=== PATIENT | female | born 1945 | race African-American/Black ===

== ENCOUNTER 2021-07-22 23:10 | Inpatient (IN) | payer OTHER ==
[~2021-07-22] VITALS: Ht 152.4 cm; Wt 65.4 kg
--- NOTE | ~2021-07-22 | HC ---
[facility] [place] [address] CONSULTATION Name: ELLA TRUJILLO Room #: 363-P ADM IN M.R.#: [id number] Admission: 07/23/21 Attend Phys: Alberta Fishman MD Discharge: Date of : 47 Report #: [id number] THIS REPORT FOR: cc: [facility] - Clinic physician unknown [facility] - Clinic physician unknown Memo Sal MD ~ DATE OF SERVICE: 07/31/2021 HISTORY OF PRESENT ILLNESS: This is a 76-year-old female patient who was evaluated by me for altered mental status. I reviewed this patient's records. I talked to the patient. The patient does not provide much reliable history because her memory is very poor. I talked to the nurse looking after this patient. I called the patient's daughter and discussed the patient with her. She says that the patient's memory was good before she got COVID, but multiple notes have indicated that this patient has dementia; therefore, it is very difficult to tell which history is correct. Emergency Room note does indicate that the patient was hypoxic at one time. This is from the emergency room. The note from other physician's indicate that this patient has a cardiomyopathy. Her ejection fraction apparently is only 15-20%. She has external LifeVest. She has end-stage renal disease and she is on hemodialysis. She was admitted with a shock from defibrillator. According to the notes, she was in poor condition at home. She had missed the dialysis, also, but this is all from the notes. Daughter provides different history. REVIEW OF SYSTEMS: Also positive for AVF of the right arm. According to record medical noncompliance, anemia, TB treated 30 years ago, left bundle branch block, WILLIAM, colon resection, appendectomy, left leg surgeries, CAD, V-tach according to the record, she has dementia. She has COPD. She has external defibrillator. She had AR twice. She has a history of diabetes, hypertension, heart murmur. This was a relevant 14-point review of system. PAST MEDICAL HISTORY: Somewhat difficult to obtain and is contradictory. FAMILY HISTORY: Negative for any early age stroke. SOCIAL HISTORY: According to the daughter, she was in the hospital, but then she went to what she described as rehabilitation, but maybe half-way facility. PHYSICAL EXAMINATION: Pretty limited. She was alert, but she did not know what month it is, what day it is, who the president is. Her speech was intact. She moved all 4 extremities. She was weak. She said she can feel in all 4 extremities. I had a difficult time doing the reflexes because the patient could not take an appropriate posture for that and does not appear to be any meningeal sign. She could not cooperate with the fundus examination. [facility] [address] [place] [address] CONSULTATION Name: ELLA TRUJILLO Room #: 363-P ADM IN M.R.#: [id number] Admission: 07/23/21 Attend Phys: Alberta Fishman MD Discharge: Date of : 46 Report #: [id number] She had extensive records in the computer and those were reviewed. She does not have any imaging study of the brain. She does have blood workup, which was reviewed. IMPRESSION: 1. It is difficult to tell the etiology of the patient's altered mental status. History from the record and the daughter is contradictory. I am not sure which one is correct. In any event, she can develop encephalopathy secondary to hypoxia she suffered as well as COVID. 2. I discussed with the patient's daughter that she has numerous medical issues. If I can get a CT scan done to make sure there is no etiology there and that is reasonable, we will order that. I will order a TSH and vitamin B12 also. I will discuss this patient with the hospitalist tomorrow. Thank you very much for allowing me to share in the management of this patient and if you have any questions, please feel free to contact me. More than 50 minutes of time was spent taking care of this patient today and majority was spent counseling and coordinating, talking to the patient, talking to the daughter and review the extensive records she has. Thank you very much for this referral. By: [id number] [id number] Memo Sal MD /nt
--- NOTE | ~2021-07-22 | EMS ---
[address] [address] EMS Patient Care Report Name: ELLA TRUJILLO Room #: 363-P ADM IN M.Carroll.#: [id number] Admission: 07/23/21 Attend Phys: Omid Carrion MD Discharge: Date of : 47 Report #: [id number] THIS REPORT FOR: //name// Report Transmitted: 07/23/2021 02:47 EMS Care Summary [place], [place]/[facility] Incident [id number] @ 07/22/2021 22:22 Incident Location [address] [place] [address] Patient ELLA TRUJILLO Female, 75 Years 1945 Patient Address [address] [place] [address] Patient History Diabetes,Hypertension (HTN),End Stage Renal Disease (ESRD),Cardiac Condition - Other,Dialysis,Type 2 Diabetes, Patient Allergies No known allergies, Patient Medications Atorvastatin, Coreg, Aspirin, Lisinopril, Chief Complaint LIFE VEST SHOCKED Disposition Transported No Lights/[place] Dispatch Reason Heart Problems/AICD Transported To [facility] Narrative DISPATCHED EMERGENCY ON A HEART PROBLEM. PUMPER 41 ON SCENE UPON ARRIVAL. 75 Y/O FEMALE SITTING IN CHAIR IN FRONT ROOM APPEARING IN NO IMMEDIATE DISTRESS. GCS 15 AND A/OX4. CONSENTS FOR TX AND TRANSPORTATION. PT'S DAUGHTER STATES THAT [address] [address] EMS Patient Care Report Name: ELLA TRUJILLO Room #: 363-P ADM IN M.R.#: [id number] Admission: 07/23/21 Attend Phys: Omid Carrion MD Discharge: Date of : 46 Report #: [id number] PT'S LIFE VEST SHOCKED HER. PT CONFIRMS THIS AND STATES THIS IS THE FIRST TIME THIS HAS HAPPENED AND IT ONLY SHOCKED HER ONCE. DENIES ANY PAIN CURRENTLY BUT STATES SHE HAD PAIN AFTER IT SHOCKED HER. ECG OBTAINED SHOWING NSR ON THE MONITOR. DENIES ANY SOA OR ANY OTHER MEDICAL COMPLAINTS. PT'S DAUGHTER STATES THAT PT HASN'T BEEN EATING FOR THE PAST COUPLE DAYS. PT STATES SHE JUST HASN'T FELT LIKE EATING LATELY. MOVED WITHOUT INCIDENT TO AMBULANCE VIA STRETCHER. PLACED ON MONITOR AND REATTACHED TO ECG. V/S'S OBTAINED. OXYGEN SATURATION IS DECREASED. PT CONTINUES TO DENY ANY SOA OR ANY OTHER MEDICAL COMPLAINT. PT'S DAUGHTER IS STANDING BY AMBULANCE AND CONFIRMS THAT PT HAS HAD A HISTORY OF LOW OXYGEN LEVELS IN THE PAST. PT PLACED ON OXYGEN. GLUCOSE IS 58. 12-LEAD ECG OBTAINED SHOWING NSR AND NO OBVIOUS ST ELEVATION OR DEPRESSION IN ANY LEADS. IV ATTEMPTED WITHOUT ESTABLISHMENT. TRANSPORTED TO [facility]. REASSESSED ENROUTE. REMAINS GCS 15 AND A/OX4. V/S'S OBTAINED. OXYGEN SATURATION HAS IMPROVED. REPORT CALLED TO HOSPITAL. HOSPITAL REQUESTS THAT PT BE GIVEN ORAL GLUCOSE. ORAL GLUCOSE ADMINSITERED. V/S'S OBTAINED UPON ARRIVAL AT HOSPITAL. GLUCOSE HAS NOW IMPROVED AT 68. MOVED WITHOUT INCIDENT TO ER HOSPITAL BED. WHILE MOVING PT, EMS AND HOSPITAL STAFF FIND WHAT APPEARS TO BE BED BUGS CRAWLING ON AND AROUND PT. PT CARE TRANSFERRED TO ED RN. MEDIC 41 CONTACTS DISPATCH AND ADVISED OF BED BUGS AND PLACED OUT OF SERVICE FOR BIO. NOTE: WHEN ATTEMPTING TO UPLOAD MONITOR TO REPORT, IT DOES NOT SHOW IN ORDER TO UPLOAD OR WHEN ATTEMPTING TO SEND TO THE CLOUD. TX SUMMARY WAS PRINTED OFF AND MANUALLY ENTERED AFTER MULTIPLE ATTEMPTS TO UPLOAD. Initial Vitals @22:40P: 77,BP: 140/80,Pain: 0/10,GCS: 15,Glucose: 58,SpO2: 83, @22:30P: 80,R: 16,Pain: 0/10,GCS: 15,IN Suspected: false @22:46P: 78,R: 16,BP: 152/83,Pain: 0/10,GCS: 15,SpO2: 90,Revised Trauma: 12, @22:56P: 70,R: 14,BP: 135/101,GCS: 15,Glucose: 68,SpO2: 96,Revised Trauma: 12, Assessments @22:29MENTAL:Place Oriented,Person Oriented,Time Oriented,Event Oriented,SKIN:HEENT:Head/Face: No Abnormalities,Neck/Airway: No Abnormalities,LUNG SOUNDS:General: No Abnormalities,ABDOMEN:General: No Abnormalities,PELVIS//GI:EXTREMITIES:Capillary Refill: Right Upper: < 2 Sec,Capillary Refill: Left Upper: < 2 Sec,Left Arm: No Abnormalities,Right Arm: No Abnormalities,Left Leg: No Abnormalities,Right Leg: No Abnormalities,PULSE:Radial: 2+ Normal,NEURO:No Abnormalities,@22:55MENTAL:Person Oriented,Time Oriented,Place Oriented,Event Oriented,SKIN:HEENT:Head/Face: No Abnormalities,Neck/Airway: No Abnormalities,LUNG SOUNDS:General: No Abnormalities,ABDOMEN:General: No Abnormalities,PELVIS//GI:EXTREMITIES:Capillary Refill: Left Upper: < 2 Sec,Capillary Refill: Right Upper: < 2 Sec,Left Arm: No Abnormalities,Right Arm: No Abnormalities,PULSE:Radial: 2+ Normal,NEURO:No Abnormalities, Impression [facility] [address] [place] [address] EMS Patient Care Report Name: ELLA TRUJILLO Room #: 363-P ADM IN .R.#: [id number] Admission: 07/23/21 Attend Phys: Omid Carrion MD Discharge: Date of : 47 Report #: [id number] Need for continuous medical supervision Procedures @22:37Oxygen FlowRate: 4 Device: Nasal Cannula (NC) Response: UnchangedSucceeded@22:303-Lead ECGResponse: UnchangedSucceeded@22:40Saline Lock cc (20 ga) Site: Hand-LeftResponse: UnchangedFailed@22:29ALS AssessmentResponse: UnchangedSucceeded@22:35StretcherResponse: Unchanged@22:52Oral Glucose - 24 Grams (gms) - OralResponse: Improved@22:4012-Lead ECGResponse: UnchangedSucceeded Timeline 22:20,Call Received 22:20,Dispatch Notified 22:22,Dispatched 22:22,En Route 22:27,On Scene 22:28,At Patient 22:29,ALS Assessment,Response: UnchangedSucceeded, 22:30,3-Lead ECG,Response: UnchangedSucceeded, 22:30,BP: / M,PULSE: 80,RR: 16 R,SPO2: Ox,ETCO2: ,BG: ,PAIN: 0,GCS: 15, 22:35,Stretcher,Response: Unchanged 22:37,Oxygen FlowRate: 4 Device: Nasal Cannula (NC) Response: UnchangedSucceeded, 22:40,12-Lead ECG,Response: UnchangedSucceeded, 22:40,BP: 140/80 M,PULSE: 77,RR: R,SPO2: 83 Ox,ETCO2: ,B,PAIN: 0,GCS: 15, 22:40,Saline Lock cc 20 ga Site: Hand-Left,Response: UnchangedFailed, 22:46,BP: 152/83 M,PULSE: 78,RR: 16 R,SPO2: 90 Ox,ETCO2: ,BG: ,PAIN: 0,GCS: 15, 22:46,Depart Scene 22:52,Oral Glucose - 24 Grams (gms) - Oral,Response: Improved 22:56,BP: 135/101 M,PULSE: 70,RR: 14 R,SPO2: 96 Ox,ETCO2: ,B,PAIN: ,GCS: 15, 23:00,At Destination 23:22,Call Closed Disclaimer v1.1 Copyright 2020 [employer] This EMS Care Summary contains data elements from the applicable legal record (which may be displayed differently). It is designed to provide pertinent information for the following purposes: continuity of care, clinical quality, and state data reporting. The complete legal record is available to ED staff and administrators of the receiving hospital in [employer]'s Patient Tracker. All data is provided "as is."
[2021-07-22 23:36] VITALS: BP 120/57
[2021-07-23] VITALS (7 sets, daily range): BP systolic 137–155; BP diastolic 73–100
[2021-07-23 00:11] LABS: EOSINOPHILS 0.4 % (0.0-3.0); MCV 85.5 fL (80.0-100.0)
[2021-07-23 00:13] LABS: ABSOLUTE NEUTROPHILS 4.5 thou/uL (1.4-8.2); BASOPHILS 0.3 % (0.0-2.0); HEMATOCRIT 29.2 % (37.0-47.0); HEMOGLOBIN 9.3 gm/dL (12.0-15.0); LYMPHOCYTES 13.7 % (24.0-44.0); MCH 27.2 pg (26.0-34.0); MCHC 31.8 g/dL (28.0-37.0); MONOCYTES 7.8 % (1.0-8.0); PLATELET COUNT 197 thou/uL (150-400); POLYS 77.8 % (36.0-66.0); RBC 3.41 mil/uL (4.20-5.00); RDW 20.4 % (10.5-14.5); WBC 5.7 thou/uL (4.0-11.0)
[2021-07-23 00:15] LABS: CALCIUM 6.7 mg/dL (8.5-10.1); CREATININE 10.4 mg/dL (0.6-1.0); POTASSIUM 5.1 mmol/L (3.5-5.1)
[2021-07-23 02:25] LABS: INR 1.17; PROTIME 12.7 Seconds (10.5-12.1)
[2021-07-23] MEDS ORDERED: RENVELA0.8 GM PO (03:34)
[2021-07-23] MEDS ORDERED: CINACALCET HCL60 MG PO (03:36)
--- NOTE | 2021-07-23 04:53 | NUR ---
ADMIT PT ADMITTED TO ROOM 363 FROM ER. BEING ADMITTED WITH CHF, COVID, AND ESRD. PT HAS HISTORY OF DEMENTIA. GORDON AV FISTULA, HAS DIALYSIS //WED. IV TO X2 WITH HEP GTT RUNNING AT 10 MLS/HR OR 11MG/KG/HR. VSS. PT ORIENTED TO ROOM CALL LIGHT SYSTEM AND POC. PT UNKEMPT WITH LIVE BED BUGS NOTED TO BODY, ALL PERSONAL BELONGINGS PLACED IN LINEN BAG AND SEALED. ON BIPAP AT 60% SATS AT 93%. SKIN MOIST BUT NO WOUNDS OR OPEN AREAS NOTED. TELEMETRY APPLIED READING SR WITH A BBB RATE OF 69.
[2021-07-23 08:02] LABS: HEMATOCRIT 31.2 % (37.0-47.0); HEMOGLOBIN 9.7 gm/dL (12.0-15.0); MCH 26.4 pg (26.0-34.0); MCHC 31.2 g/dL (28.0-37.0); MCV 84.6 fL (80.0-100.0); RBC 3.69 mil/uL (4.20-5.00); RDW 20.4 % (10.5-14.5); WBC 6.5 thou/uL (4.0-11.0)
[2021-07-23 08:07] LABS: CHOLESTEROL 142 mg/dL (<200); HDL CHOLESTEROL 28 mg/dL (>40); LDL CHOLESTEROL 84 mg/dL (<100); TC:HDL 5.1 Ratio (Not establshd); TRIGLYCERIDE 154 mg/dL (<150); VLDL 31 mg/dL (<40)
[2021-07-23 08:16] LABS: CALCIUM 6.7 mg/dL (8.5-10.1); CREATININE 10.6 mg/dL (0.6-1.0); POTASSIUM 4.9 mmol/L (3.5-5.1); TOTAL BILIRUBIN 0.5 mg/dL (0.2-1.0); TOTAL PROTEIN 7.5 g/dL (6.4-8.2)
--- NOTE | 2021-07-23 08:29 | EKG ---
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
--- NOTE | 2021-07-23 09:42 | NUR ---
RECEIVED ORDERS FOR OT EVAL AND TREAT. PER CHART REVIEW, PT. ADMITS WITH NSTEMI. WILL DEFER OT EVAL UNTIL TOMORROW.
[2021-07-23 18:58] LABS: HCO3 26.2 mmol/L (22.0-26.0); PCO2 39.5 mmHg (35.0-45.0); PO2 69.9 mmHg (80.0-100.0); sO2 94.6 % (92.0-98.0)
--- NOTE | 2021-07-23 19:36 | NUR ---
RN ASSUMED PT'S CARE AT 5000-1900PM, PT IS ON BIPAP WITH O2 60-70% , PT'S O2SAT STAYS AT 92-95%, PT 'S DAILYSIS FINISHED ABOUT 1820PM, REMOVAL 3000ML FLUID, PT'S BP AND HR ARE STABLE AT DAY SHIFT,RN HAS CALLED HOSPITAL DR AND DR ERICKSON TO REPORT PT'S RR AT 35-42 ( FO2 60-70%), AND ABG RESULTS, RN HAS REPORTED TO NEXT SHIFT TO F/U DR ORDER AND KEEP EYE ON PT.
--- NOTE | 2021-07-23 20:08 | NUR ---
RESPIRATORY THERAPIST TALKED WITH ARNULFO YAÑEZ SWORD SWALLOWER RE ABG. AT THIS TIME MONITORING PT ON FLOOR WIHT RR 44. PROVIDER SWORD SWALLOWER AND HOUSEKEEPER UPDATED. BIPAP INTACT, CONTINUOUS PULSE OX. GORDON AV FISTULA WITH GUAZE BANDAGE. BED ALARM ON. PT REFUSED TO HAVE PUPILS CHECKED FOR REACTION TO LIGHT. BY SQUEEZING EYES AND TURNING HEAD BACK AND FORTH.
[2021-07-24 00:22] VITALS: BP 131/70
--- NOTE | 2021-07-24 01:55 | NUR ---
PT HAD BED BATH, NOTED 3 BUGS. DOUBLE BAGGED LINEN. TALKED WITH RESPIRATORY, WILL REMOVE WIG IN AM AND PLACE IN BAG AND RESPIRATORY WILL REFIT MASK FOR BIPAP.
--- NOTE | 2021-07-24 06:25 | NUR ---
MESSAGE LEFT WITH MARTHA RIOS F/U ON HOTLINE FOR BED BUGS PER AIRLINE LOUNGE RECEPTIONIST REQUEST.
[2021-07-24 08:30] VITALS: BP 109/58
[2021-07-24 09:08] LABS: HEPATITIS B SURFACE AG Negative (Negative)
[2021-07-24 09:37] LABS: ALBUMIN 2.1 g/dL (3.4-5.0); CALCIUM 6.5 mg/dL (8.5-10.1); DIRECT BILIRUBIN 0.2 mg/dL (<0.1-0.2); PHOSPHORUS 5.2 mg/dL (2.6-4.7); POTASSIUM 4.6 mmol/L (3.5-5.1); TOTAL BILIRUBIN 0.4 mg/dL (0.2-1.0)
[2021-07-24 09:41] LABS: CREATININE 7.2 mg/dL (0.6-1.0)
--- NOTE | 2021-07-24 09:54 | 2DMMODE ---
[facility] [address] [place] [address] 2 D/M-MODE ECHOCARDIOGRAM Name: ELLA TRUJILLO Room #: 363-P ADM IN M.R.#: [id number] Admission: 07/23/21 Attend Phys: Alberta Fishman MD Discharge: Date of : 47 Report #: [id number] THIS REPORT FOR: cc: [facility] - Clinic physician unknown [facility] - Clinic physician unknown Sanju Paz MD ~ APPROVED REPORT Study performed: 07/24/2021 07:45:11 EXAM: Limited 2D and color flow Echocardiogram Patient Location: In-Patient Room #: 363 Status: routine BSA: 1.82 HR: 64 bpm BP: 131/70 mmHg Rhythm: NSR Other Information Study Quality: Good Risk Factors: Cardiac Risk Factors: HTN, DM Indications Congestive Heart Failure COPD Diabetes CAD Covid 2D Dimensions IVSd: 11.28 (7-11mm) LVDd: 48.96 mm PWd: 15.90 (7-11mm) LVDs: 46.03 (25-40mm) Left Atrium: 40.30 (27-40mm) LV Single Plane 4CH: 22.80 % LV Single Plane 2CH: 48.22 % Aortic Valve AoV Peak Serg.: 2.56 m/s AO Peak Gr.: 26.12 mmHg LVOT Max P.33 mmHg AO Mean Gr.: 12.07 mmHg LVOT Mean P.43 mmHg [facility] [address] [place] [address] 2 D/M-MODE ECHOCARDIOGRAM Name: ELLA TRUJILLO Room #: 363-P ADM IN M.R.#: [id number] Admission: 07/23/21 Attend Phys: Daniel Carrillo Discharge: Date of : 47 Report #: [id number] AO V2 Mean: 1.51 m/s LVOT Max V: 1.15 m/s AO V2 VTI: 45.98 cm LVOT Mean V: 0.69 m/s LVOT V1 VTI: 23.07 cm Tricuspid Valve TR Peak Serg.: 2.82 m/s TR Peak Gr.: 31.87 mmHg Left Ventricle The left ventricle is normal size. There is global hypokinesis of the left ventricle. There is normal left ventricular wall thickness. Left ventricular systolic function is severely decreased. LVEF is 15-20%. This study is not technically sufficient to allow evaluation of the LV diastolic function. Right Ventricle The right ventricle is normal size. The right ventricular systolic function is normal. Atria Left atrium is dilated. Right atrium is dilated. Aortic Valve The Aortic valve is sclerotic with focal echodensity which vegetation cannot be excluded Cannot exclude aortic valve vegetation. Mild aortic stenosis. Highest mean aortic valve gradient is 26_mmHg. Mitral Valve Mitral valve leaflets are mildly thickened. Moderate mitral annular calcification. Mild mitral regurgitation. Cannot exclude mitral valve vegetation. Tricuspid Valve The tricuspid valve is normal in structure. Mild tricuspid regurgitation. PAP 39 mmHg. Pulmonic Valve Pulmonic valve is not well visualized. Mild pulmonic regurgitation. Great Vessels Aortic root is normal in size. Ascending aorta is not well visualized. Pericardium There is no pericardial effusion. There is no pleural [facility] [address] [place] [address] 2 D/M-MODE ECHOCARDIOGRAM Name: ELLA TRUJILLO Room #: 363-P ADM IN .R.#: [id number] Admission: 07/23/21 Attend Phys: Daniel Carrillo Discharge: Date of : 47 Report #: [id number] effusion. <Conclusion> The left ventricle is normal size. There is global hypokinesis of the left ventricle. Left ventricular systolic function is severely decreased. LVEF is 15-20%. The right ventricle is normal size. Left atrium is dilated. Right atrium is dilated. The Aortic valve is sclerotic with focal echodensity which vegetation cannot be excluded Mild aortic stenosis. Highest mean aortic valve gradient is 26_mmHg. Mitral valve leaflets are mildly thickened. Moderate mitral annular calcification. Mild mitral regurgitation. The tricuspid valve is normal in structure. Mild tricuspid regurgitation. PAP 39 mmHg. Pulmonic valve is not well visualized. Mild pulmonic regurgitation. Aortic root is normal in size. There is no pericardial effusion. <ELECTRONICALLY SIGNED> By: Sanju Paz MD 07/24/21953 3 3 Sanju Paz MD /INF
[2021-07-24 11:51] VITALS: BP 93/55
[2021-07-24 16:15] VITALS: BP 89/50
--- NOTE | 2021-07-24 19:18 | NUR ---
RN ASSUMED PT'S CARE AT 0700-1900PM, PT IS A&OX1 ( PERSON ), PT CAN FOLLOW SOME COMMANDS, PT IS CONFUSED AT TIME, PT IS CONTINUING BIPAP WITH O2 50-70%, PT'S O2SAT STAY AT 92-94%, PT IS ON IV ABX AND TREAT COVID MEDICATIONS,RN HAS REPORTED DR ABOUT PT'S BRETHING FAST (30-40) SOMETIMES , RN HAS REPORTED TO NEXT SHIFT TO KEEP EYES ON PT.
[2021-07-24 20:03] VITALS: BP 91/51
--- NOTE | 2021-07-24 23:33 | NUR ---
PT CONFUSED . FOLLOWS COMMANDS AT TIMES. RT IN RM ATEMPTEDE TO TRY PT ON HF NC OFF OF BIPAP. SHE TOLERATED FOR A FEW MINUTES THEN DESATTED INTO 80S. PT TOOK HER MEDS WITH SIPS OF WATER THEN WAS PLACED BACK ON BIPAP. BED DOWN CALL LIGHT IN REACH. BED ALARM IS ON. HR BSR ON MONITOR 63. WILOL CONTINUE TO MONITOR PT FOR CHANGES.
[2021-07-25 00:20] VITALS: BP 115/60
[2021-07-25 05:14] VITALS: BP 95/51
[2021-07-25 06:01] LABS: ALBUMIN 2.1 g/dL (3.4-5.0); CALCIUM 6.1 mg/dL (8.5-10.1); CREATININE 7.7 mg/dL (0.6-1.0); DIRECT BILIRUBIN 0.2 mg/dL (<0.1-0.2); PHOSPHORUS 6.2 mg/dL (2.5-4.9); POTASSIUM 4.9 mmol/L (3.5-5.1); TOTAL BILIRUBIN 0.4 mg/dL (0.2-1.0); TOTAL PROTEIN 5.6 g/dL (6.4-8.2)
--- NOTE | 2021-07-25 06:39 | NUR ---
PT CONFUSED. FOLLOWS SOME COMMANDS . SHE WAS ABLE TO SWALLOW HER PILLS TONIGHT MIXED IN WATER OR APPLE JUICE. PT REMAINS ON BIPAP 60%. BED CHANGED BATH COMPLETED. NO BED BUGS NOED. BP MODERATELY LOW 95/51. RR MAINLY IN 30S TONIGHT.
[2021-07-25 08:02] VITALS: BP 101/6
--- NOTE | 2021-07-25 09:06 | NUR ---
WOUND CONSULT; DUE TO COVID RESTRICTIONS THE ASSESSMENT IS LIMITED TO WOUND PICTURES TO LIMIT EXPOSURE. THE WOUND HAS S/S CONSISTANT WITH PRESSURE. THERE APPEARS TO BE A CLEAN RED WOUND BED. THE WOUND IS CLEARLY SACRAL. THE PATIENT IS CURRENTLY ON DIALYSIS AND CANNOT BE MOVED TO ASSESS. RECOMMENDATIONS; -APPLY ZGUARD, COVER WITH A SACRAL FOAM CHANGE, M/W/F PRN. -ADD A LOW AIR LOSS BED PUMP. DISCUSSED WITH RN.
--- NOTE | 2021-07-25 09:24 | HC ---
[facility] [address] [address] CONSULTATION Name: ELLA TRUJILLO Room #: 363-P ADM IN M.R.#: [id number] Admission: 07/23/21 Attend Phys: Alberta Fishman MD Discharge: Date of : 47 Report #: [id number] THIS REPORT FOR: cc: [facility] - Clinic physician unknown [facility] - Clinic physician unknown Jacob Arellano MD ~ DATE OF SERVICE: 07/23/2021 INFECTIOUS DISEASE CONSULTATION ATTENDING PHYSICIAN: Dr. Fishman. REASON FOR EVALUATION: COVID-19 infection, complicated by pneumonitis and respiratory failure with ARDS. HISTORY OF PRESENT ILLNESS: Chart reviewed. The patient examined. This is a 75-year-old woman with extensive medical history of diabetes mellitus complicated by several sequela as diffuse vasculopathy, has a cardiomyopathy with an EF of 10%-20%, also has chronic renal failure on dialysis, has a fairly pronounced dementia as well, who was noted to be dyspneic, some concern with her defibrillator was set off as well. She was evaluated and felt to be a fairly significant compromised now on BiPAP 60%. She is undergoing dialysis, plan to remove 3 liters of fluid. She does acknowledge me, although it is not clear that she is coherent. Initial evaluation, she had a positive testing for coronavirus. Initial chest x-ray showed marked cardiomegaly and diffuse infiltrates, perhaps multifactorial. She was given a dose of ceftriaxone. ALLERGIES: None known. MEDICATIONS: Currently include atorvastatin, doxycycline, ceftriaxone, enoxaparin, allopurinol, ascorbic acid, dexamethasone, ____ aspirin, carvedilol. PAST MEDICAL HISTORY: As described above, diabetes mellitus; diffuse vasculopathy; end-stage renal disease, on dialysis; has a cardiomyopathy with a markedly depressed ejection fraction; previous myocardial infarction; dementia; chronic anemia; previous history of TB treated at age 31. SOCIAL HISTORY: Nonsmoker. No ethanol. No illicit drug use. FAMILY HISTORY: Noncontributory. REVIEW OF SYSTEMS: Unobtainable reliably. PHYSICAL EXAMINATION: GENERAL: She appears chronically ill and undernourished. She is in moderate to marked distress. [facility] [address] [place] [address] CONSULTATION Name: ELLA TRUJILLO Room #: 363-P [facility] IN ..#: [id number] Admission: 07/23/21 Attend Phys: Alberta Fishman MD Discharge: Date of : 47 Report #: [id number] VITAL SIGNS: Temperature 97.5, pulse 68, respirations ____, blood pressure 150/89. SKIN: Warm, dry. HEENT: BiPAP in place. Normocephalic. Extraocular muscles intact. NECK: Appears to be supple. LUNGS: Scattered coarse breath sounds. HEART: Sounds are distant. I do not appreciate any murmur. ABDOMEN: Somewhat distended, mildly firm. There are no peritoneal signs. GENITOURINARY AND RECTAL: Deferred. LABORATORY DATA: Electrolytes: Sodium 150, potassium 4.9, chloride 109, bicarbonate 24, anion gap of 17, BUN and creatinine 88 and 10.6, glucose of 94, albumin 3.0, total protein 7.5. CBC: White count of 6.5, H and H 9.7 and 31.2, platelets of 227. ASSESSMENT AND PLAN: 1. COVID-19 infection, complicated by pneumonitis and respiratory failure with likely multifactorial, can exclude a component of acute respiratory distress syndrome. 2. Diabetes mellitus with widespread sequelae. 3. Has known cardiomyopathy with a low ejection fraction. 4. End-stage renal disease, on dialysis. We will continue empiric therapy with ceftriaxone. We will initiate remdesivir as well to corticosteroids and ____. She remains quite tenuous at this point. Continue to monitor expectantly certainly at risk for further complications and clinical deterioration. <ELECTRONICALLY SIGNED> By: Jacob Arellano MD 07/25/21 0924 [id number] Jacob Arellano MD /nt
[2021-07-25 11:38] VITALS: BP 90/56
--- NOTE | 2021-07-25 15:58 | NUR ---
INITIAL ASSESSMENT: SW reviewed chart and spoke with nursing and attending physician. Pt remains in Enhanced Isolation due to COVID. Pt is afebrile and requiring bipap support. Pt is on IV abx, IV steroids and Remdesivir. Pt with hx of ESRD and goes to outpatient dialysis at [facility] clinic. Pt noted to have bed bugs. SW spoke with pt's dtr, Kady, via phone. Introduced role of SW. Pt lives at home with her family. Prior to admission, pt was using a rollator walker. Pt was not on O2 at home. Pt's dtr states pt has been non-compliant with going to dialysis. Pt's family will provide transportation. Pt also uses [facility]. Pt has Medicaid in-home care through [employer]: 2hrs/day Mon-Fri. Pt's PCP is Dr. Kenya Christy. Pt's dtr states that plan is for pt to go stay with another dtr upon discharge. PT/OT evals to be ordered when pt is able to participate. No weekend discharge planned. SW is following to assist as needed with discharge planning.
--- NOTE | 2021-07-25 18:39 | NUR ---
ASSUMED PATIENT CARE AT 0700. ALERT. PATIENT RIGHT AVF CLOTED DURING DIALYSIS. PATIENT HAD RIGHT IJ TEMPORAY DIALYSIS CATH BY IR TOLERATED WELL. ON 70% FIO2 VIS BIPAP. VSS. NOT TOWOARDS POC GOALS.
[2021-07-25 20:24] VITALS: BP 117/67
[2021-07-25 23:29] VITALS: BP 00/57; BP 100/57
--- NOTE | 2021-07-26 00:19 | NUR ---
PT ALERT X1. CONFUSED. FOLLOWS SOME COMMANDS. SHE WAS ABLE TO SWALLOW HER MEDS TONIGHT CRUSHED IN APPLE JUICE. LUNGS STILL SOUND SLIGHTLY COARSE. RR 28-30S. SATS 98-100% PRESENTLY ON 60% FIO2 ON BIPAP. PT ON ANYI MATTRESS. ZGARD TO BUTTOCKS SACRAL WOUND. TURNING PT Q 2 HRS.BED DOWN. BED ALARMON. SB-SR ON MONITOR WITH BBB. WILL CONTINUE TO MONITOR PT FOR CHANGES.
[2021-07-26 03:47] VITALS: BP 102/62
[2021-07-26 05:58] LABS: HEMATOCRIT 25.6 % (37.0-47.0); HEMOGLOBIN 8.3 gm/dL (12.0-15.0); MCH 27.2 pg (26.0-34.0); MCHC 32.6 g/dL (28.0-37.0); MCV 83.5 fL (80.0-100.0); RBC 3.06 mil/uL (4.20-5.00); RDW 19.6 % (10.5-14.5); WBC 6.4 thou/uL (4.0-11.0)
--- NOTE | 2021-07-26 06:11 | NUR ---
RT TITRATED VENTILATOR FIO2 DOWN TO 40%. SAT WNL PRESENTLY. WILL CONTINUE TO MONITOR FOR CHANGES.
[2021-07-26 06:19] LABS: ALBUMIN 2.2 g/dL (3.4-5.0); CALCIUM 6.5 mg/dL (8.5-10.1); CREATININE 7.4 mg/dL (0.6-1.0); DIRECT BILIRUBIN 0.2 mg/dL (<0.1-0.2); PHOSPHORUS 6.3 mg/dL (2.5-4.9); POTASSIUM 5.5 mmol/L (3.5-5.1); TOTAL BILIRUBIN 0.4 mg/dL (0.2-1.0); TOTAL PROTEIN 5.5 g/dL (6.4-8.2)
[2021-07-26 07:32] VITALS: BP 106/60
[2021-07-26 11:56] VITALS: BP 116/63
[2021-07-26 15:23] VITALS: BP 125/63
--- NOTE | 2021-07-26 18:01 | NUR ---
CARE ASSUMD THIS AM, PT ALERT TO PERSON, CONFUSE AND FORGETFUL. WAS ON BIPAP EARLIER TODAY, CURRENTLY ON 4L, NO SIGNS OF DISTRESS, HAD DIALYSIS TODAY, 2L WAS TAKEN OUT. ANURIC. REPOSITION Q2H. DENIES ANY NEEDS ELVIN. WILL CONTINUE TO MONITOR
[2021-07-26 20:33] VITALS: BP 125/60
[2021-07-27 04:48] VITALS: BP 125/64
[2021-07-27 05:07] LABS: ALBUMIN 2.5 g/dL (3.4-5.0); CALCIUM 6.8 mg/dL (8.5-10.1); DIRECT BILIRUBIN 0.2 mg/dL (<0.1-0.2); PHOSPHORUS 3.9 mg/dL (2.5-4.9); TOTAL BILIRUBIN 0.5 mg/dL (0.2-1.0); TOTAL PROTEIN 5.8 g/dL (6.4-8.2)
[2021-07-27 05:14] LABS: POTASSIUM 3.7 mmol/L (3.5-5.1)
--- NOTE | 2021-07-27 05:32 | NUR ---
increased pt to 100% bipap tonight.she is breathing very shallow. her o2 sats returned to 100% within less than a minute. she is comfortable and is calm.
[2021-07-27 08:07] VITALS: BP 152/70
[2021-07-27 08:35] LABS: BE(vivo) 2.9 mmol/L (-2 to +3); HCO3 26.9 mmol/L (22.0-26.0); PO2 314.1 mmHg (80.0-100.0); pH 7.457 (7.360-7.450); sO2 99.7 % (92.0-98.0)
[2021-07-27 11:41] VITALS: BP 153/79
[2021-07-27 15:02] VITALS: BP 144/85
[2021-07-27 20:58] VITALS: BP 126/73
--- NOTE | 2021-07-27 23:10 | NUR ---
PT AWAKE CONFUSED. SHE FOLLOWS SOME COMMANDS. VSS SATS 96% ON BIPAP FIO2 40%. LUNGS HAVE WHEEZES SHERWIN. LABORED RT 32 ON BIPAP. PT SITTING IN HIGH FOWLERS PRESENTLY. BED DOWN . CALL LIGHT IN REACH. BED ALARMIS ON. ZGARD TO BOTTOM. ANYI MATTRESS ON.
[2021-07-27 23:51] VITALS: BP 136/83
[2021-07-28 03:44] VITALS: BP 115/65
--- NOTE | 2021-07-28 04:35 | NUR ---
PT CONTINUES TO BE CONFUSED. SATS 94-98% ON BIPAP FIO2 40%. RESP TX PER RT. DIALYSIS TO BE DONE TODAY. BED DOWN. CALL LIGHT IN REACH. BED ALARM IS ON.
--- NOTE | 2021-07-28 06:01 | NUR ---
NOTIFIED ASSISTANT BOILER OPERATOR Gene HILLS PT CONTINUES TO PULL OFF BIPAP TUBING FREQUENTLY THIS AM. HALDOL 2MG IV GIVEN X1. WILL CONTINUE TO MONITOR PT FOR CHANGES.
--- NOTE | 2021-07-28 07:47 | NUR ---
PT BECAME MORE CONFUSED THIS AM FREQUENTLY PULLING AT BIPAP. HALDOL GIVEN EARLIER THIS AM WAS NOT EFFECTIVE. DIALYSIS WAS STARTING PT REMOVED HER ENTIRE BIPAP AND WAS COMBATIVE WITH NS AND DIALYSIS NS. DR FUENTES NOTIFIED . SOFT WRIST RESTRAINTS APPLIED. NOTIFIED PTS DAUGHTER TYSHAWN. SHE VERBALIZED UNDERSTANDING OF SITUATION AND WAS AGREEABLE TO RESTRAINTS AND ZYPREXA. INDUCTION COORDINATION POWER ENGINEER FIORDALIZA NOTIFIED. PPC UPDATED. REQUEST FOR IV TEAM TO START ANOTHER IV PLACED IN COMPUTER. IR TO DO DECLOTTING OF RIGHT AV FISTULA LATER TODAY.
[2021-07-28 07:57] VITALS: BP 156/98
--- NOTE | 2021-07-28 15:45 | NUR ---
PT NOT NEEDING A CL, HAS A WORKING PIV IN LT HAND, REDRESSED AND FLUSHED WITH NO ISSUES. PT HAS A RT ARM FISTULA AND RT IJ HD CATH
[2021-07-28 16:43] VITALS: BP 142/63
[2021-07-28 19:43] VITALS: BP 120/95
--- NOTE | 2021-07-28 22:11 | NUR ---
PT IS ALERT X1. SHE IS ALERT AND SATTING 94% ON 6LHFNC. BIPAP IS OFF. PT ABLE TO TAKE MEDS WITH HER APPLE SAUCE AND TOLERATED WELL. DENIED PAIN. ZGARD TO SACRAL WOUND. NO S/S DISTRESS NOTED PRESENTLY. NO BLEEDING NOTED FROM FISTULA. PT RESTING QUIETLY AND CALMLY.
[2021-07-29 00:47] VITALS: BP 101/55
[2021-07-29 03:15] VITALS: BP 119/64
--- NOTE | 2021-07-29 03:41 | NUR ---
PT PROGRESSING TOWARDS D/C GOALS. VSS AFEBRILE. RR 20S. SAT 100% ON 6LHFNC. DENIED PAIN. NO S/S DISTRESS. WOUND CARE DONE FOAM DRESSINGS INTACT. ZGARD APPLIED. PT MORE ALERT AND LESS AGITATED.
[2021-07-29 05:32] LABS: HEMATOCRIT 26.5 % (37.0-47.0); HEMOGLOBIN 8.5 gm/dL (12.0-15.0); MCH 26.8 pg (26.0-34.0); MCHC 32.1 % (28.0-37.0); MCV 83.6 fL (80.0-100.0); RBC 3.17 mil/uL (4.20-5.00); RDW 19.6 % (10.5-14.5); WBC 8.3 thou/uL (4.0-11.0)
[2021-07-29 07:59] VITALS: BP 110/54
--- NOTE | 2021-07-29 16:24 | NUR ---
SW reviewed chart and spoke with nursing and attending physician. Pt remains in Enhanced Isolation due to COVID. Pt is afebrile and on 10L of O2. Pt is on IV abx and IV steroids. Pt had fistulogram. PT/OT evals to be ordered when pt is able to participate. SW is following to assist as needed with discharge planning.
[2021-07-29 16:44] VITALS: BP 133/61
[2021-07-29 19:39] VITALS: BP 131/48
[2021-07-30 03:55] VITALS: BP 123/52
--- NOTE | 2021-07-30 06:15 | NUR ---
PROGRESS PT ALERT ORIENTED TO SELF PLEASANT AND COOPERATIVE. RIGHT UPPER ARM FISTULA WITH GOOD BRUIT AND TRILL, RIGHT CHEST TESSIO INTACT SOME DRAINAGE NOTED ON DRESSING. ON 3 TO 4 LITERS O2 VIA NC SATS FROM 90 TO 95%. LUNGS SOUNDS ARE COARSE AND WHEEZY RT TX'S ORDERED WITH SOME EFFECT.PERICARE AND WOUND CARE TO SACRUM PERFORMED ORDERED PT REPOSITIONING SELF IN BED. VSS. ACCUCHECKS AND SSI CONTINUE. TELEMETRY INTACT READING SB WITH AN AV BLOCK. LIFE VEST IN PLACE MUD TANK OPERATOR AND CONTROL NEXT TO BED. SCD'S IN PLACE. CONTINUE POC.
[2021-07-30 07:32] VITALS: BP 143/68
--- NOTE | 2021-07-30 09:57 | NUR ---
WOUND CARE F/U; THE SACRUM WOUND IS MUCH IMPROVED. NO S/S OF INFECTION. PATIENT CAN TURN WITH A LITTLE HELP. NO S/S OF INFECTION. THE WOUND IS SMALLER TODAY. RECCOMMENDATIONS; D/C SACRAL FOAM AND USE ONLY ZGUARD.
--- NOTE | 2021-07-30 15:47 | NUR ---
BLANCA reviewed chart and spoke with nursing and attending physician. Pt remains in Enhanced Isolation due to COVID. Pt is afebrile and on 4L of O2. PT/OT to start working with pt. BLANCA spoke with pt's dtrKady, via phone to provide update. Pt's dtr requests to Face time with pt today. BLANCA left message for pt's nurse to request that pt's dtr be called from pt's room if possible today. BLANCA is following to assist as needed with discharge planning.
[2021-07-30 16:08] VITALS: BP 146/98
[2021-07-30 20:40] VITALS: BP 130/61
[2021-07-31 03:36] VITALS: BP 120/73
--- NOTE | 2021-07-31 05:22 | NUR ---
Assumed pt's care beginning of pm shift. Able to answer to her name. Otherwise confused. Pt slept very little this shift. can be impulsive. Did take NC and bipap off this shift. On 7L O2. Reoriented to situations as needed. Fall precaution remains in place. Call light within reach. Nursing to continue to monitor.
--- NOTE | 2021-07-31 07:21 | NUR ---
Pt has 2 BG orders Q6 AND ACHS accuchecks. After report this am, day RN and this nursing agreed to dc q6 accuchecks per protocol since pt is now eating and not on SSI at this time.
[2021-07-31 08:22] VITALS: BP 132/70
[2021-07-31 11:41] VITALS: BP 122/43
--- NOTE | 2021-07-31 12:35 | NUR ---
BLANCA reviewed chart and spoke with nursing and attending physician. Pt remains in Enhanced Isolation due to COVID. Pt is afebrile and on 5L of O2. Pt has been using the bipap at nighttime. Pt is on IV steroids. BLANCA discussed case with 5N rn rehabilitation, who will put in a 5N consult. Will need insurance authorization for 5N if pt is appropriate. BLANCA is following to assist as needed with discharge planning.
--- NOTE | 2021-07-31 14:52 | NUR ---
5N CONSULT COMPLETED BY JAZZ HUGHES NP. Pt DOES NOT HAVE THE TOLERANCE FOR ACUTE REHAB AND WAS LOW FUNCTIONING PREMORBIDLY. THERE ARE ALSO CONCERNS W/ A D/C PLAN. AT THIS TIME, SNF LEVEL OF CARE/REHAB IS RECOMMENDED. THANK YOU FOR THIS REFERRAL.
[2021-07-31 16:21] VITALS: BP 131/56
--- NOTE | 2021-07-31 18:42 | NUR ---
RN ASSUMED PT'S CARE AT 0700AM, PT KNOWS HER NAME, SHE CAN FOLLOW SOME COMMANDS, BUT SHE IS CONFUED AND SHE REFUSED SOME MEDICATIONS, PT EATS POOR AT MEAL TIMES WITH ASSIST, PT IS ON O2 4-5L/MIN/NC AT DAY SHIFT, PT'S O2SAT STAYS AT 94-98%, PT WILL HAVE TEMP DIALYSIS CATHETER ( R IJ ) TO REMOVE BY IV TEAM TODAY OR TOMORROW, RN WILL EPORTED TO NEXT SHIFT TO F/U THIS RENAL DR ORDER.
[2021-07-31 20:15] VITALS: BP 110/76
--- NOTE | 2021-08-01 03:12 | NUR ---
PROGRESS PT ALERT ORIENTED TO SELF. VSS, DENIES PAIN. ACCUCHECKS CONTINUE NO SSI REQUIRED TONIGHT. R IJ TEMPORARY DIALYSIS CATHETER INTACT WITH DRESSING IN PLACE TO BE DC'D TOMORROW. GORDON AV FISTULA WITH GOOD BRUIT AND TRILL. PERICARE COMPLETED ZYGUARD TO SACRUM. REPOSITIONED BUT PT REPOSITIONS SELF AND ENDS UP IN SAME POSITION. NO BM THIS SHIFT AND PT IS ANURIC. DIALYSIS ORDERED FOR TOMORROW.
[2021-08-01 04:00] VITALS: BP 123/55
[2021-08-01 07:39] VITALS: BP 123/64
[2021-08-01 09:53] LABS: HEMATOCRIT 27.3 % (37.0-47.0); HEMOGLOBIN 8.5 gm/dL (12.0-15.0); MCH 26.6 pg (26.0-34.0); MCHC 31.3 g/dL (28.0-37.0); MCV 85.2 fL (80.0-100.0); PLATELET COUNT 243 thou/uL (150-400); WBC 8.1 thou/uL (4.0-11.0)
[2021-08-01 10:12] LABS: ALBUMIN 2.5 g/dL (3.4-5.0); CREATININE 3.8 mg/dL (0.6-1.0); POTASSIUM 3.2 mmol/L (3.5-5.1); TOTAL BILIRUBIN 0.4 mg/dL (0.2-1.0); TOTAL PROTEIN 6.1 g/dL (6.4-8.2)
[2021-08-01 11:47] VITALS: BP 134/60
[2021-08-01 12:10] LABS: ABSOLUTE NEUTROPHILS 6.9 thou/uL (1.4-8.2); ANISOCYTOSIS 1+; PLATELET ESTIMATE NORMAL
--- NOTE | 2021-08-01 14:01 | NUR ---
BLANCA reviewed chart and spoke with nursing and attending physician. Pt remains in Enhanced Isolation due to COVID. Pt is afebrile and on 3L of O2. Pt is on IV steroids. Pt had dialysis catheter removed today. Pt does not meet admission criteria for 5N. BLANCA spoke with pt's dtr, Kady, via phone to provide update and discuss discharge plan. SW discussed SNF options. Pt's dtr states that pt has recently been to [facility] and would like a referral to be sent for review. No weekend discharge anticipated. LBANCA faxed referral to [facility] and notified Mili and Volodymyr in admissions. BLANCA is following to assist as needed with discharge planning.
--- NOTE | 2021-08-01 14:57 | NUR ---
Dr. Tadeo paged at [phone] Head order. CT dept requesting clrification regarding pulmonology clearance for CT. Awaiting call back at this time.
[2021-08-01 20:23] VITALS: BP 125/69
[2021-08-02 03:49] VITALS: BP 129/54
--- NOTE | 2021-08-02 06:30 | NUR ---
PROGRESS PT ALERT TO SELF AND SITUATION. MORE AWAKE AND ALERT THAN PREVIOUS SHIFTS. UP TO W/C WITH ASSIST OF 2 GETTING STRONGER DOWN TO RADIOLOGY VIA W/C AND TRANSFERRED TO TABLE WITH ASSIST OF ONE HEAD CT COMPLETED. GORDON AV FISTULA WITH GOOD BRUIT AND TRILL. TEMP DIALYSIS CATHETER REMOVED DRESSING REMAINS C/D/I. LIFE VEST IS IN PLACE, PT MANAGES BATTERY CHARGING. IV TO LH INTACT FLUSHED WITHOUT DIFFICULTY, BUT PT IS SENSITIVE TO SALINE STATES IT STINGS. APPETITE IS IMPROVING. POSSIBLE DISCHARGE TO A FACILITY NEXT WEEK.
[2021-08-02 08:25] VITALS: BP 124/53
[2021-08-02 12:02] VITALS: BP 125/59
[2021-08-02 16:20] VITALS: BP 112/50
[2021-08-02 20:00] VITALS: BP 115/54
--- NOTE | 2021-08-03 03:14 | NUR ---
PROGRESS PT ALERT AND ORIENTED TO SELF AND SITUATION. KEPT REMOVING BIPAP MASK SO NASAL CANULA WITH 2 LITERS O2 REAPPLIED. SPIT OUT EVENING MEDS STATING SHE DID NOT WANT THEM. TRIED TO ENCOURAGE HER TO TAKE COLACE BUT SHE REFUSED NO BM THIS SHIFT. VSS CONTINUE POC.
[2021-08-03 03:25] VITALS: BP 137/66
[2021-08-03 07:59] VITALS: BP 112/53; BP 86/52
[2021-08-03 12:06] VITALS: BP 100/43
[2021-08-03 16:42] VITALS: BP 120/58
--- NOTE | 2021-08-03 18:34 | NUR ---
progressing towards poc goals.
[2021-08-03 19:31] VITALS: BP 115/64
--- NOTE | 2021-08-04 03:52 | NUR ---
PROGRESS PT PROGRESSING MORE ALERT AND AWARE OF HER SURROUNDINGS BUT FREQUENTLY QUESTIONS WHERE SHE IS. STILL HAS POOR APPETITE BUT STATES SHE DOESN'T LIKE THE FOOD. ATE FEW BITES OF DINNER THEN REQUESTED FRUIT CUP AND ICE CREAM FOR A SNACK. PUDDING AND PEACHES GIVEN. GORDON AV FISTULA WITH GOOD BRUIT AND TRILL. TOOK HALF OF COLACE BUT DOESN'T LIKE THE TASTE WOULD PROBABLY DO BETTER WITH PILLS. HAD MIRALAX TODAY BUT NO BM YET. ANURIC. PIV TO LH FLUSHES WITHOUT DIFFICULTY. NOT OOB THIS SHIFT. BUT PT REPOSITIONS HERSELF. ACCUCHECKS CONTINUE. PLAN FOR DIALYSIS TODAY. POSSIBLE DC LATER THIS WEEK.
[2021-08-04 06:39] VITALS: BP 113/53
[2021-08-04 07:38] VITALS: BP 118/58
--- NOTE | 2021-08-04 10:15 | NUR ---
WOUND CARE F/U; THE FRICTION VS PRESSURE INJURY HAS CLINICAL SIGNS OF HEALING. NO S/S OF INFECTION. THE PATIENT IS BEING TURNED APPROPRIATLY. NO ODOR OR OTHER CONCERNS AT THIS TIME. NO CHANGES. RN PRESENT.
--- NOTE | 2021-08-04 11:00 | NUR ---
Nutrition: REC diet liberalization to regular or at a minimum 2 gm Na+, currently renal restrictions not indicated with prolonged poor oral intake.
--- NOTE | 2021-08-04 15:14 | NUR ---
BLANCA reviewed chart and spoke with nursing and attending physician. Pt remains in Enhanced Isolation due to COVID. Pt is afebrile and on 2L of O2. Pt is having dialysis today. BLANCA discussed case with Mili and Volodymyr in admissions at [facility], who state they can accept pt pending confirmation of dialysis arrangements. BLANCA faxed updated clinical and therapy notes for review. Dialysis need an updated hemoglobin within 48 hours. Last labs were on 08/01. BLANCA notified attending physician. BLANCA spoke with pt's dtr, Kady, via phone to provide update and discuss discharge plan. Kady is agreeable with plan and aware that pt may discharge as early as tomorrow, pending dialysis arrangements. BLANCA is following to assist as needed with discharge planning.
[2021-08-04 15:55] LABS: HEMATOCRIT 27.4 % (37.0-47.0); HEMOGLOBIN 8.5 gm/dL (12.0-15.0)
[2021-08-04 16:15] VITALS: BP 109/38
--- NOTE | 2021-08-04 18:17 | NUR ---
ASSUMED PATIENT CARE AT 0700. ALERT. ON 1L/NC TOLERATED WELL. PROGRESSING TOWARDS POC GOALS.
[2021-08-04 20:38] VITALS: BP 120/53
[2021-08-05 04:28] VITALS: BP 123/53
--- NOTE | 2021-08-05 07:19 | NUR ---
Pt. slept intermittently. O2 at 1L/NC , no respiratory distress. Cont. on enhanced precaution. Bed alarm on for safety.
[2021-08-05 07:56] VITALS: BP 118/69
[2021-08-05 09:02] VITALS: BP 118/69
[2021-08-05] MEDS ORDERED: CARVEDILOL3.125 MG PO (13:46)
[2021-08-05] MEDS ORDERED: LIPITOR40 MG PO (13:46)
[2021-08-05] MEDS ORDERED: LISINOPRIL5 MG PO (13:46)
[2021-08-05] MEDS ORDERED: BAYER CHEWABLE81 MG PO (13:47)
[2021-08-05] MEDS ORDERED: FOLIC ACID1 MG PO (13:47)
[2021-08-05] MEDS ORDERED: ALLOPURINOL 30300 M1 PO (13:49)
[2021-08-05] MEDS ORDERED: PREDNISONE 10 M10 MG PO (13:51)
--- NOTE | 2021-08-05 14:15 | NUR ---
DISCHARGE NOTE: BLANCA reviewed chart and spoke with nursing and attending physician. Pt remains in Enhanced Isolation due to COVID. Pt is afebrile and on 1L of O2. Pt is medically stable for discharge to [facility] today. BLANCA faxed updated labs and additional info to [facility] for review. BLANCA confirmed info received with Mili in admissions. Pt can admit to [facility] today. Wheelchair van transportation scheduled for 1600 per facility's arrangements. BLANCA updated attending physician. Discharge ppwk faxed to [facility]. Confirmed info was received. Pt to have dialysis at the facility's dialysis unit on MWF. BLANCA spoke with pt's dtr, Kady, via phone to provide update and notify of discharge plan. Kady is aware and in agreement with discharge plan. BLANCA updated pt's nurse and provided number for report. No additional SW needs identified at this time. BLANCA is available to assist should needs arise.
--- NOTE | 2021-08-05 17:14 | NUR ---
DC TO [facility] AT 1653
== END 2021-08-05 17:18 | DRG 166 ==
LOC: ER 23:10 → EROBS 07-23 00:44 → 3W 07-23 00:44
PROVIDERS: Emergency Medicine; Hospitalist; Internal Medicine; Nurse Practitioner Family; Psychiatry & Neurology Neuromuscular Medicine; Specialist; ADMIT Hospitalist; ATTEND Hospitalist
PROC: 5A09357 Assistance with Respiratory Ventilation, Less than 24 Consecutive Hours, Continuous Positive Airway Pressure (ICD-10-PCS; principal; 2021-07-23)
PROC: XW033E5 Introduction of Remdesivir Anti-infective into Peripheral Vein, Percutaneous Approach, New Technology Group 5 (ICD-10-PCS; principal; 2021-07-23)
PROC: 5A09457 Assistance with Respiratory Ventilation, 24-96 Consecutive Hours, Continuous Positive Airway Pressure (ICD-10-PCS; 2021-07-24)
PROC: 5A1D70Z Performance of Urinary Filtration, Intermittent, Less than 6 Hours Per Day (ICD-10-PCS; 2021-07-25)
PROC: 02HV33Z Insertion of Infusion Device into Superior Vena Cava, Percutaneous Approach (ICD-10-PCS; 2021-07-25)
PROC: B5181ZA Fluoroscopy of Superior Vena Cava using Low Osmolar Contrast, Guidance (ICD-10-PCS; 2021-07-25)
PROC: 5A1D70Z Performance of Urinary Filtration, Intermittent, Less than 6 Hours Per Day (ICD-10-PCS; 2021-07-26)
PROC: 05CY3ZZ Extirpation of Matter from Upper Vein, Percutaneous Approach (ICD-10-PCS; 2021-07-28)
PROC: 03733ZZ Dilation of Right Subclavian Artery, Percutaneous Approach (ICD-10-PCS; 2021-07-28)
PROC: B51M1ZZ Fluoroscopy of Right Upper Extremity Veins using Low Osmolar Contrast (ICD-10-PCS; 2021-07-28)
PROC: 5A0935A Assistance with Respiratory Ventilation, Less than 24 Consecutive Hours, High Flow/Velocity Cannula (ICD-10-PCS; 2021-07-28)
PROC: B51W1ZZ Fluoroscopy of Dialysis Shunt/Fistula using Low Osmolar Contrast (ICD-10-PCS; 2021-07-28)
PROC: B5161ZZ Fluoroscopy of Right Subclavian Vein using Low Osmolar Contrast (ICD-10-PCS; 2021-07-28)
PROC: B5181ZZ Fluoroscopy of Superior Vena Cava using Low Osmolar Contrast (ICD-10-PCS; 2021-07-28)
PROC: 03CY3ZZ Extirpation of Matter from Upper Artery, Percutaneous Approach (ICD-10-PCS; 2021-07-28)
PROC: 5A0935A Assistance with Respiratory Ventilation, Less than 24 Consecutive Hours, High Flow/Velocity Cannula (ICD-10-PCS; 2021-07-29)
PROC: 5A09357 Assistance with Respiratory Ventilation, Less than 24 Consecutive Hours, Continuous Positive Airway Pressure (ICD-10-PCS; 2021-07-30)
PROC: 5A0935A Assistance with Respiratory Ventilation, Less than 24 Consecutive Hours, High Flow/Velocity Cannula (ICD-10-PCS; 2021-07-30)
PROC: 5A09357 Assistance with Respiratory Ventilation, Less than 24 Consecutive Hours, Continuous Positive Airway Pressure (ICD-10-PCS; 2021-07-31)
PROC: 5A0935A Assistance with Respiratory Ventilation, Less than 24 Consecutive Hours, High Flow/Velocity Cannula (ICD-10-PCS; 2021-07-31)
PROC: 5A0935A Assistance with Respiratory Ventilation, Less than 24 Consecutive Hours, High Flow/Velocity Cannula (ICD-10-PCS; 2021-08-01)
PROC: 02PYX3Z Removal of Infusion Device from Great Vessel, External Approach (ICD-10-PCS; 2021-08-01)
PROC: 5A09357 Assistance with Respiratory Ventilation, Less than 24 Consecutive Hours, Continuous Positive Airway Pressure (ICD-10-PCS; 2021-08-01)
PROC: 5A09357 Assistance with Respiratory Ventilation, Less than 24 Consecutive Hours, Continuous Positive Airway Pressure (ICD-10-PCS; 2021-08-02)
PROC: 5A09357 Assistance with Respiratory Ventilation, Less than 24 Consecutive Hours, Continuous Positive Airway Pressure (ICD-10-PCS; 2021-08-03)
PROC: 5A1D70Z Performance of Urinary Filtration, Intermittent, Less than 6 Hours Per Day (ICD-10-PCS; 2021-08-04)
PROC: 5A09357 Assistance with Respiratory Ventilation, Less than 24 Consecutive Hours, Continuous Positive Airway Pressure (ICD-10-PCS; 2021-08-05)
DX: U07.1 COVID-19 (principal); J96.21 Acute and chronic respiratory failure with hypoxia; N18.6 End stage renal disease; J12.82 Pneumonia due to coronavirus disease 2019; I21.4 Non-ST elevation (NSTEMI) myocardial infarction; I50.43 Acute on chronic combined systolic (congestive) and diastolic (congestive) heart failure; G93.41 Metabolic encephalopathy; I13.2 Hypertensive heart and chronic kidney disease with heart failure and with stage 5 chronic kidney disease, or end stage renal disease; E11.22 Type 2 diabetes mellitus with diabetic chronic kidney disease; F03.90 Unspecified dementia, unspecified severity, without behavioral disturbance, psychotic disturbance, mood disturbance, and anxiety; I25.10 Atherosclerotic heart disease of native coronary artery without angina pectoris; I25.5 Ischemic cardiomyopathy; I07.1 Rheumatic tricuspid insufficiency; T14.8XXA Other injury of unspecified body region, initial encounter; W57.XXXA Bitten or stung by nonvenomous insect and other nonvenomous arthropods, initial encounter; D63.8 Anemia in other chronic diseases classified elsewhere; M10.9 Gout, unspecified; E66.01 Morbid (severe) obesity due to excess calories; E78.5 Hyperlipidemia, unspecified; R53.81 Other malaise; I27.20 Pulmonary hypertension, unspecified; I25.2 Old myocardial infarction; Z83.3 Family history of diabetes mellitus; Z82.49 Family history of ischemic heart disease and other diseases of the circulatory system; Z91.14 Patient's other noncompliance with medication regimen; Z90.49 Acquired absence of other specified parts of digestive tract; Y93.9 Activity, unspecified; Y92.89 Other specified places as the place of occurrence of the external cause; Y99.8 Other external cause status; Z79.82 Long term (current) use of aspirin; Z79.899 Other long term (current) drug therapy; Z68.33 Body mass index [BMI] 33.0-33.9, adult
CPT/HCPCS: 10879; 32100